=== PATIENT | male | born 1985 | race Caucasian/White ===

== ENCOUNTER 2018-02-14 21:45 | Emergency (ER) | payer OTHER ==
[2018-02-14] MEDS ORDERED: KETOROLAC 30 MG/ML INJ ONE (22:02)
[2018-02-14 22:10] LABS: Absolute Lymphocytes (CBC) 3.2 K/uL (0.7-4.9); Absolute Monocytes 0.7 K/uL (0.1-1.3); Absolute Neutrophil 4.1 K/uL (1.8-8.0); Basophils % 0.8 % (0-1.3); Eosinophils % 2.8 % (0-4.4); Hematocrit 39.7 % (39.6-49.0); Lymphocytes % 38.7 % (15.3-44.8); MCH 31.9 pg (27.0-35.0); MCV 92.6 fL (80-100); MPV 8.7 fL (7.6-11.3); Monocytes % 8.7 % (3.3-12.3); RBC Red Blood Cell Count 4.29 M/uL (4.33-5.43)
--- NOTE | 2018-02-15 00:09 | EDPHYS ---
Physician Documentation [facility] Name: Delio Diaz Age: 32 yrs Sex: Male : 1985 Arrival Date: 02/14/2018 Time: 21:48 Bed 23 Private MD: ED Physician Jaron Haque HPI: 02/14 23:03 This 32 yrs old Male presents to ER via EMS with complaints of Abdominal Pain.gs 23:03 The patient complains of pain in the right mid back and right low back. The pain gs radiates to the right lower quadrant. Onset: The symptoms/episode began/occurred acutely, just prior to arrival. Modifying factors: The symptoms are alleviated by nothing. the symptoms are aggravated by nothing. Associated signs and symptoms: Pertinent positives: nausea. Severity of pain: At its worst the pain was severe in the emergency department the pain is unchanged. The patient has experienced similar episodes in the past, a few times. The patient has not recently seen a physician. Historical: - Allergies: 21:51 No Known Allergies; lp1 - Home Meds: 21:51 None [Active]; lp1 - PMHx: 21:51 Kidney stones; lp1 - PSHx: 21:51 None; lp1 - Immunization history:: Adult Immunizations up to date. - Social history:: Smoking status: Patient uses tobacco products, smokes one pack cigarettes per day. - Ebola Screening: : No symptoms or risks identified at this time. ROS: 23:03 Constitutional: Negative for fever. gs 23:03 All other systems are negative. Exam: 23:03 Head/Face: Normocephalic, atraumatic. Eyes: Pupils equal round and reactive to light, gs extra-ocular motions intact. Lids and lashes normal. Conjunctiva and sclera are non-icteric and not injected. Cornea within normal limits. Periorbital areas with no swelling, redness, or edema. ENT: Nares patent. No nasal discharge, no septal abnormalities noted. Tympanic membranes are normal and external auditory canals are clear. Oropharynx with no redness, swelling, or masses, exudates, or evidence of obstruction, uvula midline. Mucous membranes moist. Neck: Trachea midline, no thyromegaly or masses palpated, and no cervical lymphadenopathy. Supple, full range of motion without nuchal rigidity, or vertebral point tenderness. No Meningismus. Chest/axilla: Normal chest wall appearance and motion. Nontender with no deformity. No lesions are appreciated. Cardiovascular: Regular rate and rhythm with a normal S1 and S2. No gallops, murmurs, or rubs. Normal PMI, no JVD. No pulse deficits. Respiratory: Lungs have equal breath sounds bilaterally, clear to auscultation and percussion. No rales, rhonchi or wheezes noted. No increased work of breathing, no retractions or nasal flaring. Abdomen/GI: Soft, non-tender, with normal bowel sounds. No distension or tympany. No guarding or rebound. No evidence of tenderness throughout. Male : Normal genitalia with no discharge or lesions. Skin: Warm, dry with normal turgor. Normal color with no rashes, no lesions, and no evidence of cellulitis. MS/ Extremity: Pulses equal, no cyanosis. Neurovascular intact. Full, normal range of motion. Neuro: Awake and alert, GCS 15, oriented to person, place, time, and situation. Cranial nerves II-XII grossly intact. Motor strength 5/5 in all extremities. Sensory grossly intact. Cerebellar exam normal. Normal gait. 23:03 Constitutional: The patient appears alert, awake, uncomfortable. 23:03 Back: CVA tenderness, that is mild, is noted on the right. Vital Signs: 21:50 Weight 81.65 kg; Height 6 ft. 0 in. (182.88 cm); Pain 10/10; lp1 21:57 BP 123 / 85; Pulse 81; Temp 97.7(O); Pulse Ox 99% ; rv 23:27 BP 128 / 89; Pulse 70; Pulse Ox 100% on R/A; rv 02/15 00:39 BP 139 / 88; Pulse 72; Pulse Ox 99% on R/A; rv 02/14 21:50 Body Mass Index 24.41 (81.65 kg, 182.88 cm) lp1 MDM: 02/14 21:49 Patient medically screened. 23:03 Differential diagnosis: nephrolithiasis, pyelonephritis, UTI. Data reviewed: vital gs signs, nurses notes. Response to treatment: the patient's symptoms have markedly improved after treatment. 02/15 00:07 Response to treatment: and as a result, I will discharge patient. 02/14 21:50 Order name: Basic Metabolic Panel; Complete Time: 00:09 02/14 21:50 Order name: CBC with Diff; Complete Time: 00:09 02/14 21:50 Order name: CT Stone Protocol 02/14 21:50 Order name: IV Saline Lock; Complete Time: 21:56 02/14 21:50 Order name: Labs collected and sent; Complete Time: 21:56 Administered Medications: 02/14 22:00 Drug: TORadol 15 mg Route: IVP; Site: right antecubital; rv 02/15 00:21 Follow up: Response: No adverse reaction; Pain is decreased rv 00:21 Drug: Potassium Effervescent Tablet 50 mEq Route: PO; rv 00:21 Follow up: Response: No adverse reaction; Medication administered at discharge. rv 01:00 Drug: NS 0.9% 1000 ml Route: IV; Rate: 1 bolus; Site: right antecubital; rv 01:23 Follow up: Response: No adverse reaction; IV Status: Completed infusion rv 01:00 Drug: Zofran 4 mg Route: IVP; Site: right antecubital; rv 01:24 Follow up: Response: No adverse reaction rv Disposition: 02/15/18 00:08 Discharged to Home. Impression: Hydronephrosis with renal and ureteral calculous obstruction. - Condition is Stable. - Discharge Instructions: Kidney Stones, Hydronephrosis. - Prescriptions for Naprosyn 500 mg Oral Tablet - take 1 tablet by ORAL route 2 times per day As needed take with food; 30 tablet. - Medication Reconciliation Form, Thank You Letter, Antibiotic Education, Prescription Opioid Use form. - Follow up: Susan Sullivan MD; When: 2 - 3 days; Reason: Re-evaluation by your physician. Signatures: Dispatcher [employer] EDMS Mala Victoria RN RN lp1 Jaron Haque MD MD Amadou Orellana RN RN rv Corrections: (The following items were deleted from the chart) 02/14 23:05 23:03 The patient has not experienced similar symptoms in the past, [facility] 02/15 01:38 00:08 02/15/2018 00:08 Discharged to Home. Impression: Hydronephrosis with renal and rv ureteral calculous obstruction. Condition is Stable. Forms are Medication Reconciliation Form, Thank You Letter, Antibiotic Education, Prescription Opioid Use. Follow up: Susan Sullivan; When: 2 - 3 days; Reason: Re-evaluation by your physician. gs
--- NOTE | 2018-02-15 00:09 | ER ---
Nurse's Notes [facility] Name: Delio Diaz Age: 32 yrs Sex: Male : 1985 Arrival Date: 02/14/2018 Time: 21:48 Bed 23 Private MD: Diagnosis: Hydronephrosis with renal and ureteral calculous obstruction Presentation: 02/14 21:48 Presenting complaint: EMS states: EMS responded to patient on the ground in parking lp1 lot, rolling around in pain; Lower right pelvic pain that began suddenly 1 hour ago, states has not been able to void for about 2 hours; Hx of kidney stones. Transition of care: patient was not received from another setting of care. Onset of symptoms was February 14, 2018 at 21:00. Risk Assessment: Do you want to hurt yourself or someone else? Patient reports no desire to harm self or others. Initial Sepsis Screen: Does the patient meet any 2 criteria? No. Patient's initial sepsis screen is negative. Does the patient have a suspected source of infection? No. Patient's initial sepsis screen is negative. Care prior to arrival: None. 21:48 Method Of Arrival: EMS: [facility] lp1 21:48 Acuity: TUNG 3 lp1 Historical: - Allergies: 21:51 No Known Allergies; lp1 - Home Meds: 21:51 None [Active]; lp1 - PMHx: 21:51 Kidney stones; lp1 - PSHx: 21:51 None; lp1 - Immunization history:: Adult Immunizations up to date. - Social history:: Smoking status: Patient uses tobacco products, smokes one pack cigarettes per day. - Ebola Screening: : No symptoms or risks identified at this time. Screenin:51 Abuse screen: Denies threats or abuse. Denies injuries from another. Nutritional lp1 screening: No deficits noted. Tuberculosis screening: No symptoms or risk factors identified. Fall Risk None identified. Assessment: 22:00 General: Appears in no apparent distress. uncomfortable, Behavior is agitated. Pain: rv Complains of pain in abdomen. Neuro: Level of Consciousness is awake, alert, obeys commands, Oriented to person, place, time, situation. Cardiovascular: Heart tones S1 S2 present. Respiratory: Airway is patent. GI: Bowel sounds present X 4 quads. Abd is soft Abdomen is tender to palpation. : No signs and/or symptoms were reported regarding the genitourinary system. EENT: No signs and/or symptoms were reported regarding the EENT system. Derm: Skin is intact. 02/15 01:14 Reassessment: Patient appears in no apparent distress at this time. Patient and/or rv family updated on plan of care and expected duration. Pain level reassessed. Patient is alert, oriented x 3, equal unlabored respirations, skin warm/dry/pink. Vital Signs: 02/14 21:50 Weight 81.65 kg; Height 6 ft. 0 in. (182.88 cm); Pain 10/10; lp1 21:57 BP 123 / 85; Pulse 81; Temp 97.7(O); Pulse Ox 99% ; rv 23:27 BP 128 / 89; Pulse 70; Pulse Ox 100% on R/A; rv 02/15 00:39 BP 139 / 88; Pulse 72; Pulse Ox 99% on R/A; rv 02/14 21:50 Body Mass Index 24.41 (81.65 kg, 182.88 cm) lp1 ED Course: 02/14 21:48 Patient arrived in ED. lp1 21:49 Jaron Haque MD is Attending Physician. gs 21:50 Triage completed. lp1 21:50 Arm band placed on right wrist. lp1 21:50 Patient has correct armband on for positive identification. Placed in gown. Bed in low rv position. Call light in reach. Side rails up X2. Pulse ox on. NIBP on. 22:00 Inserted saline lock: 20 gauge in right antecubital area, using aseptic technique. rv 22:29 CT Stone Protocol In Process Unspecified. EDMS 02/15 00:08 Susan Sullivan MD is Referral Physician. gs 01:13 No provider procedures requiring assistance completed. IV discontinued, bleeding rv controlled, No redness/swelling at site. Pressure dressing applied. Administered Medications: 02/14 22:00 Drug: TORadol 15 mg Route: IVP; Site: right antecubital; rv 02/15 00:21 Follow up: Response: No adverse reaction; Pain is decreased rv 00:21 Drug: Potassium Effervescent Tablet 50 mEq Route: PO; rv 00:21 Follow up: Response: No adverse reaction; Medication administered at discharge. rv 01:00 Drug: NS 0.9% 1000 ml Route: IV; Rate: 1 bolus; Site: right antecubital; rv 01:23 Follow up: Response: No adverse reaction; IV Status: Completed infusion rv 01:00 Drug: Zofran 4 mg Route: IVP; Site: right antecubital; rv 01:24 Follow up: Response: No adverse reaction rv Outcome: 00:08 Discharge ordered by . zhao 01:13 Discharged to home rv 01:13 Condition: improved 01:38 Patient left the ED. rv Signatures: Dispatcher [employer] EDMS Mala Victoria RN RN lp1 Jaron Haque MD MD gs Vicente, Ronaldo, RN RN rv Corrections: (The following items were deleted from the chart) 02/14 23: 22:45 General: Appears in no apparent distress. uncomfortable, Behavior is agitated, rv rv : 22:45 Pain: Complains of pain in abdomen rv rv : 22:45 Neuro: Level of Consciousness is awake, alert, obeys commands, Oriented to rv person, place, time, situation, rv : 22:45 Cardiovascular: Heart tones S1 S2 present rv rv 23: 22:45 Respiratory: Airway is patent rv rv 23: 22:45 GI: Bowel sounds present X 4 quads. Abd is soft Abdomen is tender to palpation rv rv 23: 22:45 : No signs and/or symptoms were reported regarding the genitourinary system. rv rv : 22:45 EENT: No signs and/or symptoms were reported regarding the EENT system. rv rv : 22:45 Derm: Skin is intact, rv rv
[2018-02-15] MEDS ORDERED: POTASSIUM 25 MEQ EFFERV TAB ONE (00:17)
[2018-02-15] MEDS ORDERED: ONDANSETRON 4 MG (ODT) TAB ONE (00:19)
[2018-02-15] MEDS ORDERED: ONDANSETRON 4 MG/2 ML VIAL ONE (00:36)
[2018-02-15] MEDS ORDERED: NA CHLORIDE 0.9% 1,000 ML ONE (00:36)
--- NOTE | 2018-02-15 09:26 | RAD REPORT ---
EXAM DESCRIPTION: CT - Stone Protocol - 02/15/2018 5:57 am CLINICAL HISTORY: Abdominal pain, right flank pain A preliminary written report was provided at the time of the study, and the report was reviewed prio r to final dictation. COMPARISON: None. TECHNIQUE: Axial 3 mm thick images were obtained without oral or IV contrast. The [id number] span s the entirety of the system including uppermost abdomen and lung bases. All CT scans are performed using dose optimization technique as appropriate and may include automated exposure control or mA/KV adjustment according to patient size. FINDINGS: Mild to moderate right-sided hydronephrosis secondary to a 2 mm calcification in the dista l right ureter at the UVJ. No left-sided hydronephrosis. No additional obstructing or nonobstructing calculi. There is questionable mineralization of renal pyramids. No suspicious renal masses. Isodense masses and pyelonephritis are not excluded on a stone protocol CT scan. No urinary bladder suspiciou s finding. Imaged portions of the liver, spleen and pancreas show no suspicious findings on non-contrast imaging . No gallbladder or biliary tree abnormality identified. No significant adrenal finding. No acute bowel finding. There is a large amount of stool throughout the colon including dilatation of the rectum. No acute colon process suspected. The appendix is normal. No hernia, mass or bulky lymphadenopathy noted. No free air, free fluid or inflammatory stranding. No significant bony abnormality. IMPRESSION: Mild to moderate right-sided hydronephrosis secondary to a 2 mm distal ureteral calculus near the UVJ. Isodense masses and pyelonephritis are not excluded on stone protocol technique.
== END 2018-02-15 01:38 | disposition home or self-care (01) ==
LOC: ER 21:45
DX: N13.2 Hydronephrosis with renal and ureteral calculous obstruction (principal); F17.210 Nicotine dependence, cigarettes, uncomplicated
CPT/HCPCS: 36415; 74176; 76377; 80048; 85025; 96374; 96375; 99284; J2405; J7030

== ENCOUNTER 2019-04-15 15:48 | Emergency (ER) | payer OTHER ==
[2019-04-15] MEDS ORDERED: dexAMETHasone 10 MG/ML VIAL ONE (16:55)
[2019-04-15] MEDS ORDERED: KETOROLAC 30 MG/ML INJ ONE (16:55)
--- NOTE | 2019-04-15 16:58 | RAD REPORT ---
EXAM DESCRIPTION: CT - Spine Lumbar Wo Con - 04/15/2019 4:44 pm CLINICAL HISTORY: Back pain, history of kidney stones, radiculopathy COMPARISON: None. TECHNIQUE: Thin section axial imaging of the lumbar spine was performed. Sagittal and coronal recon struction images were generated and reviewed. All CT scans are performed using dose optimization technique as appropriate and may include automated exposure control or mA/KV adjustment according to patient size. FINDINGS: Lumbar bodies are normal in height and alignment. No fracture or other acute vertebral bod y finding identifiable. No paraspinal mass seen. Central canal detail is inherently limited. There is loss in disc height at L4-5 with a small focal m idline herniation evident. This flattens the thecal sac in the midline. Midline canal diameter is sti ll 16 mm. No significant foraminal encroachment. L5-S1 disc bulge changes are present without herniation. There is no central spinal stenosis. Mild le ft foraminal disc bulge is present without stenosis. Remaining disc levels are unremarkable. L5 pars defect on the left. No subluxation abnormality. IMPRESSION: No fracture or acute vertebral body finding. Small midline disc herniation L4-5. No resulting central spinal stenosis. L5-S1 disc bulge not causing canal or significant foramen stenosis. Left-side L5 pars defect. No L5 subluxation.
--- NOTE | 2019-04-15 17:31 | ER ---
Nurse's Notes [facility] Name: Delio Diaz Age: 33 yrs Sex: Male : 1985 Arrival Date: 04/15/2019 Time: 15:51 Bed 16 Private MD: Diagnosis: Low back pain;L4-5 disc herniation without central spinal stenosis Presentation: 04/15 16:09 Presenting complaint: Patient states: Low back pain x 2 weeks that has been getting ss worse over time. Transition of care: patient was not received from another setting of care. Onset of symptoms was April 01, 2019. Risk Assessment: Do you want to hurt yourself or someone else? Patient reports no desire to harm self or others. Initial Sepsis Screen: Does the patient meet any 2 criteria? No. Patient's initial sepsis screen is negative. Does the patient have a suspected source of infection? No. Patient's initial sepsis screen is negative. Care prior to arrival: None. 16:09 Method Of Arrival: Ambulatory ss 16:09 Acuity: TUNG 3 ss Historical: - Allergies: 16:10 No Known Allergies; ss - Home Meds: 16:10 None [Active]; ss - PMHx: 16:10 Kidney stones; ss - PSHx: 16:10 None; ss - Immunization history:: Adult Immunizations up to date. - Social history:: Smoking status: Patient/guardian denies using tobacco. - Ebola Screening: : Patient denies exposure to infectious person Patient denies travel to an Ebola-affected area in the 21 days before illness onset. Screenin:50 Abuse screen: Denies threats or abuse. Denies injuries from another. Nutritional jl7 screening: No deficits noted. Tuberculosis screening: No symptoms or risk factors identified. Fall Risk IV access (20 points). Total Bowers Fall Scale indicates No Risk (0-24 pts). Assessment: 16:50 General: Appears in no apparent distress. uncomfortable, Behavior is cooperative, jl7 appropriate for age, anxious. Pain: Complains of pain in lumbar area Pain currently is 10 out of 10 on a pain scale. Pain began 2-3 days ago. Is continuous. Neuro: Level of Consciousness is awake, alert, obeys commands, Oriented to person, place, time, situation, Moves all extremities. Full function Speech is normal. Cardiovascular: Patient's skin is warm and dry. Respiratory: Airway is patent Respiratory effort is even, unlabored, Respiratory pattern is regular, symmetrical. Musculoskeletal: Reports pain in back. 18:00 Reassessment: Patient appears in no apparent distress at this time. Patient and/or jl7 family updated on plan of care and expected duration. Pain level reassessed. Patient is alert, oriented x 3, equal unlabored respirations, skin warm/dry/pink. Patient states symptoms have not improved. Vital Signs: 16:08 BP 136 / 92; Pulse 86; Resp 16; Temp 97.9(TE); Pulse Ox 100% on R/A; Weight 95.25 kg; ss Height 6 ft. 0 in. (182.88 cm); 18:32 BP 124 / 71; Pulse 68; Resp 16 S; Pulse Ox 100% on R/A; jl7 16:08 Body Mass Index 28.48 (95.25 kg, 182.88 cm) ED Course: 15:51 Patient arrived in ED. mr 15:59 Jc Pretty PA is PHCP. jr 15:59 Hank Iglesias MD is Attending Physician. jr8 16:08 Arm band placed on right wrist. ss 16:10 Triage completed. ss 16:37 Shayla Mccall, ASPEN is Primary Nurse. jl7 16:43 CT completed. Patient tolerated procedure well. Patient moved to CT. Patient moved back nj from CT. 16:50 Patient has correct armband on for positive identification. Bed in low position. Call jl7 light in reach. Side rails up X 1. Pulse ox on. NIBP on. Warm blanket given. 16:50 Inserted saline lock: 22 gauge in left antecubital area, using aseptic technique. jl7 16:54 CT Lumbar Spine Wo Con In Process Unspecified. EDMS 18:32 No provider procedures requiring assistance completed. IV discontinued, intact, jl7 bleeding controlled, No redness/swelling at site. Pressure dressing applied. Administered Medications: 17:00 Drug: Decadron - Dexamethasone 10 mg Route: IVP; Site: left antecubital; jl7 17:30 Follow up: Response: No adverse reaction; Pain is unchanged, physician notified jl7 17:02 Drug: TORadol - Ketorolac 15 mg Route: IVP; Site: left antecubital; jl7 17:30 Follow up: Response: No adverse reaction; Pain is unchanged, physician notified aaron 17:05 Drug: Robaxin 1 grams Route: IVPB; Infused Over: 1 hrs; Site: left antecubital; jl7 18:05 Follow up: Response: No adverse reaction; Pain is unchanged, physician notified; IV jl7 Status: Completed infusion Outcome: 17:30 Discharge ordered by . tawanda 18:32 Discharged to home ambulatory. jl7 18:32 Condition: stable 18:32 Discharge instructions given to patient, Instructed on discharge instructions, follow up and referral plans. medication usage, Demonstrated understanding of instructions, follow-up care, medications, Prescriptions given X 3. 18:33 Patient left the ED. jl7 Signatures: Dispatcher [employer] EDIL Latonia Mosquera Shelby, ASPEN RN Jc Arriola PA PA jr8 Jordan, Nathan nj Leal, Jahala, RN RN jl7 Corrections: (The following items were deleted from the chart) 16:24 16:09 Acuity: TUNG 4 ss aurelia
--- NOTE | 2019-04-15 17:31 | EDPHYS ---
Physician Documentation [facility] Name: Delio Diaz Age: 33 yrs Sex: Male : 1985 Arrival Date: 04/15/2019 Time: 15:51 Bed 16 Private MD: ED Physician Hank Iglesias HPI: 04/15 16:05 This 33 yrs old Male presents to ER via Unassigned with complaints of Back jr8 Pain. 16:05 The patient presents with pain that is acute, with no known mechanism of injury. The jr8 symptoms are located in the low back. Onset: The symptoms/episode began/occurred 2 week(s) ago. Associated signs and symptoms: Pertinent negatives: abdominal pain, chest pain, constipation, dysuria, fever, headache. Severity of symptoms: At their worst the symptoms were mild, in the emergency department the symptoms are unchanged. Pt states two weeks ago he bent over and felt a stretching pain in his lower back. Since then has had pain with walking, ROM of back, and any pressure on the area. . Historical: - Allergies: 16:10 No Known Allergies; ss - Home Meds: 16:10 None [Active]; ss - PMHx: 16:10 Kidney stones; ss - PSHx: 16:10 None; ss - Immunization history:: Adult Immunizations up to date. - Social history:: Smoking status: Patient/guardian denies using tobacco. - Ebola Screening: : Patient denies exposure to infectious person Patient denies travel to an Ebola-affected area in the 21 days before illness onset. ROS: 16:05 Constitutional: Negative for fever, chills, and weight loss, Eyes: Negative for injury, jr8 pain, redness, and discharge, ENT: Negative for injury, pain, and discharge, Cardiovascular: Negative for chest pain, palpitations, and edema, Respiratory: Negative for shortness of breath, cough, wheezing, and pleuritic chest pain, Abdomen/GI: Negative for abdominal pain, nausea, vomiting, diarrhea, and constipation. 16:05 Constitutional: Negative for chills, fatigue, fever, malaise, poor PO intake, weight loss. 16:05 Abdomen/GI: Negative for nausea and vomiting. 16:05 Back: Positive for pain at rest, pain with movement, Negative for injury or acute deformity. 16:05 : Negative for urinary symptoms, urinary frequency, hematuria, flank pain, burning with urination, penile discharge. 16:05 Skin: Negative for ecchymosis, hematoma. 16:05 Neuro: Negative for numbness, tingling. Exam: 16:08 Constitutional: This is a well developed, well nourished patient who is awake, alert, jr8 and in no acute distress. Head/Face: Normocephalic, atraumatic. Eyes: Pupils equal round and reactive to light, extra-ocular motions intact. Lids and lashes normal. Conjunctiva and sclera are non-icteric and not injected. Cornea within normal limits. Periorbital areas with no swelling, redness, or edema. ENT: Nares patent. No nasal discharge, no septal abnormalities noted. Tympanic membranes are normal and external auditory canals are clear. Oropharynx with no redness, swelling, or masses, exudates, or evidence of obstruction, uvula midline. Mucous membranes moist. Neck: Trachea midline, no thyromegaly or masses palpated, and no cervical lymphadenopathy. Supple, full range of motion without nuchal rigidity, or vertebral point tenderness. No Meningismus. Chest/axilla: Normal chest wall appearance and motion. Nontender with no deformity. No lesions are appreciated. Cardiovascular: Regular rate and rhythm with a normal S1 and S2. No gallops, murmurs, or rubs. Normal PMI, no JVD. No pulse deficits. Respiratory: Lungs have equal breath sounds bilaterally, clear to auscultation and percussion. No rales, rhonchi or wheezes noted. No increased work of breathing, no retractions or nasal flaring. Abdomen/GI: Soft, non-tender, with normal bowel sounds. No distension or tympany. No guarding or rebound. No evidence of tenderness throughout. 16:08 Back: pain, that is moderate, ROM is normal, normal spinal alignment noted, CVA tenderness, is absent. 17:52 Neuro: Awake and alert, GCS 15, oriented to person, place, time, and situation. jr8 Cranial nerves II-XII grossly intact. Motor strength 5/5 in all extremities. Sensory grossly intact. Cerebellar exam normal. Normal gait. Vital Signs: 16:08 BP 136 / 92; Pulse 86; Resp 16; Temp 97.9(TE); Pulse Ox 100% on R/A; Weight 95.25 kg; ss Height 6 ft. 0 in. (182.88 cm); 18:32 BP 124 / 71; Pulse 68; Resp 16 S; Pulse Ox 100% on R/A; jl7 16:08 Body Mass Index 28.48 (95.25 kg, 182.88 cm) ss MDM: 15:59 Patient medically screened. jr8 17:26 Data reviewed: vital signs, nurses notes, radiologic studies, and as a result, I will jr8 discharge patient. Data interpreted: Pulse oximetry: on room air is 100 %. Interpretation: normal. Counseling: I had a detailed discussion with the patient and/or guardian regarding: the historical points, exam findings, and any diagnostic results supporting the discharge/admit diagnosis, radiology results. Response to treatment: the patient's symptoms have mildly improved after treatment. ED course: At length discussion regarding diagnosis, pt given return precautions. . 04/15 16:24 Order name: CT Lumbar Spine Wo Con; Complete Time: 17:18 jr8 04/15 16:24 Order name: SL; Complete Time: 17:08 jr8 Administered Medications: 17:00 Drug: Decadron - Dexamethasone 10 mg Route: IVP; Site: left antecubital; jl7 17:30 Follow up: Response: No adverse reaction; Pain is unchanged, physician notified jl7 17:02 Drug: TORadol - Ketorolac 15 mg Route: IVP; Site: left antecubital; jl7 17:30 Follow up: Response: No adverse reaction; Pain is unchanged, physician notified jl7 17:05 Drug: Robaxin 1 grams Route: IVPB; Infused Over: 1 hrs; Site: left antecubital; jl7 18:05 Follow up: Response: No adverse reaction; Pain is unchanged, physician notified; IV jl7 Status: Completed infusion Disposition: 18:34 Co-signature as Attending Physician, Hank Iglesias MD. rn Disposition: 04/15/19 17:30 Discharged to Home. 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 - Condition is Stable. - Discharge Instructions: Back Pain, Adult, Musculoskeletal Pain, Back Exercises. - Prescriptions for Ibuprofen 800 mg Oral Tablet - take 1 tablet by ORAL route every 12 hours As needed take with food; 20 tablet. Skelaxin 800 mg Oral Tablet - take 1 tablet by ORAL route every 8 hours As needed; 30 tablet. Medrol (Baltazar) 4 mg Oral Tablets, Dose Pack - take 1 tablet by ORAL route as directed - follow package instructions; 1 packet. - Work release form, Medication Reconciliation Form, Thank You Letter form. - Follow up: Private Physician; When: 5 - 6 days; Reason: Recheck today's complaints, Re-evaluation by your physician. - Problem is new. - Symptoms have improved. Signatures: Dispatcher [employer] EDMS Hank Iglesias MD MD rn Smirch, Shelby, RN RN Jc Arriola PA PA jr8 Shayla Mccall RN RN jl7 Corrections: (The following items were deleted from the chart) 18:33 17:30 04/15/2019 17:30 Discharged to Home. Impression: Low back pain; L4-5 disc jl7 herniation without central spinal stenosis. Condition is Stable. Forms are Medication Reconciliation Form, Thank You Letter, Antibiotic Education, Prescription Opioid Use. Follow up: Private Physician; When: 5 - 6 days; Reason: Recheck today's complaints, Re-evaluation by your physician. Problem is new. Symptoms have improved. jr8
[2019-04-15] MEDS ORDERED: METHOCARBAMOL 1,000 MG in NA CHLORIDE 0.9% 100 ML IV ONE (18:00)
[2019-04-15 19:00] VITALS: TEMP 97.9; O2SAT 100
[2019-04-15 19:01] VITALS: BP 124/71
== END 2019-04-15 18:33 | disposition home or self-care (01) ==
LOC: ER 15:48
DX: M51.26 Other intervertebral disc displacement, lumbar region (principal)
CPT/HCPCS: 96365; 72131; 96375; 99284; J1100; J2800

== ENCOUNTER 2020-11-27 18:49 | Emergency (ER) | payer OTHER ==
--- NOTE | 2020-11-27 19:51 | ER ---
Nurse's Notes [facility] Name: Delio Diaz Age: 35 yrs Sex: Male : 1985 Arrival Date: 11/27/2020 Time: 19:00 Bed 28 Private MD: Diagnosis: Rash and other nonspecific skin eruption;Pityriasis rosea Presentation: 11/27 19:03 Chief complaint: Patient states: i have this rash all over my body. it started tw2 yesterday. my chest, my arms, and even on my feet and in my groin area. i tried calamine lotion and it is itching out of control and i just cant handle it. Coronavirus screen: At this time, the client does not indicate any symptoms associated with coronavirus-19. Ebola Screen: Patient denies travel to an Ebola-affected area in the 21 days before illness onset. Initial Sepsis Screen: Does the patient meet any 2 criteria? No. Patient's initial sepsis screen is negative. Does the patient have a suspected source of infection? No. Patient's initial sepsis screen is negative. Risk Assessment: Do you want to hurt yourself or someone else? Patient reports no desire to harm self or others. Onset of symptoms was November 27, 2020. 19:03 Method Of Arrival: Ambulatory tw2 19:03 Acuity: TUNG 4 tw2 Triage Assessment: 19:05 General: Appears in no apparent distress. Behavior is calm, cooperative, appropriate tw2 for age. Derm: red, raised bumps all over his body. Historical: - Allergies: 19:05 No Known Allergies; tw2 - Home Meds: 19:05 None [Active]; tw2 - PMHx: 19:05 Kidney stones; tw2 - PSHx: 19:05 None; tw2 - Immunization history:: Adult Immunizations. - Social history:: Smoking status: Patient reports the use of cigarette tobacco products, smokes one-half pack cigarettes per day, Patient uses alcohol, street drugs, marijuana, daily. Screenin:19 Abuse screen: Denies threats or abuse. Denies injuries from another. Nutritional zb screening: No deficits noted. Tuberculosis screening: No symptoms or risk factors identified. Fall Risk None identified. Assessment: 19:14 General: Appears uncomfortable, Behavior is calm. Pain: Complains of pain in chest, zb pelvis, right arm and left arm. Neuro: Level of Consciousness is awake, alert, obeys commands, Oriented to person, place, time, situation. Cardiovascular: Patient's skin is warm and dry. Respiratory: Airway is patent Trachea midline Respiratory effort is even, unlabored. GI: Abdomen is flat. Derm: Skin is intact, Skin is dry, Skin is normal, Rash noted that is papular, red, raised, urticaria, on chest, abdomen, pelvis, right arm and left arm. Musculoskeletal: Circulation, motion, and sensation intact. Range of motion: intact in all extremities. 20:06 Reassessment: pt upset states he thinks he has scabies and wants permethrin to treat bb it. Dr Abad notified and at bedside for explanation that it is not scabies. Pt became angry and left without signing discharge paperwork. Vital Signs: 19:03 BP 151 / 101; Pulse 113; Resp 17; Temp 98.4(TE); Pulse Ox 98% on R/A; Weight 86.18 kg tw2 (R); Height 6 ft. 0 in. (182.88 cm); 19:21 BP 142 / 99; Pulse 91; Resp 16; Pulse Ox 99% on R/A; zb 19:03 Body Mass Index 25.77 (86.18 kg, 182.88 cm) tw2 ED Course: 19:00 Patient arrived in ED. ds1 19:05 Triage completed. tw2 19:05 Arm band placed on. tw2 19:08 Grace Maddox RN is Primary Nurse. zb 19:14 Ammon Abad MD is Attending Physician. tw4 19:19 Patient has correct armband on for positive identification. Bed in low position. Call zb light in reach. Pulse ox on. NIBP on. 20:00 No provider procedures requiring assistance completed. Patient did not have IV access zb during this emergency room visit. Administered Medications: No medications were administered Outcome: 19:50 Discharge ordered by . tw4 20:07 Patient left the ED. bb 20:07 Eloped from patient exam room. zb 20:07 Condition: stable 20:07 Discharge instructions given to unable to give Signatures: Bonnie Parson ds1 Lela Miramontes, ASPEN RN bb Leigh Olivares RN RN tw2 Ammon Abad MD MD tw4 Grace Maddox, RN RN zb
[2020-11-27 20:16] VITALS: TEMP 98.4
[2020-11-27 20:17] VITALS: BP 142/99; O2SAT 99
--- NOTE | 2020-11-28 20:08 | EDPHYS ---
Physician Documentation [facility] Name: Delio Diaz Age: 35 yrs Sex: Male : 1985 Arrival Date: 11/27/2020 Time: 19:00 Bed 28 Private MD: ED Physician Ammon Abad HPI: 11/28 00:00 This 35 yrs old Male presents to ER via Ambulatory with complaints of Rash. tw4 00:00 The patient's rash thought to be caused by an unknown cause. The rash is located on the tw4 body diffusely. Onset: The symptoms/episode began/occurred today. Associated signs and symptoms: Pertinent positives: None. Severity of symptoms: At their worst the symptoms were moderate in the emergency department the symptoms are unchanged. The patient has not experienced similar symptoms in the past. Historical: - Allergies: 11/27 19:05 No Known Allergies; tw2 - Home Meds: 19:05 None [Active]; tw2 - PMHx: 19:05 Kidney stones; tw2 - PSHx: 19:05 None; tw2 - Immunization history:: Adult Immunizations. - Social history:: Smoking status: Patient reports the use of cigarette tobacco products, smokes one-half pack cigarettes per day, Patient uses alcohol, street drugs, marijuana, daily. ROS: 11/28 00:00 Constitutional: Negative for fever, chills, and weight loss, Eyes: Negative for injury, tw4 pain, redness, and discharge, Cardiovascular: Negative for chest pain, palpitations, and edema, Respiratory: Negative for shortness of breath, cough, wheezing, and pleuritic chest pain, Abdomen/GI: Negative for abdominal pain, nausea, vomiting, diarrhea, and constipation, Back: Negative for injury and pain, MS/Extremity: Negative for injury and deformity. Skin: Positive for rash. Exam: 00:00 Constitutional: This is a well developed, well nourished patient who is awake, alert, tw4 and in no acute distress. Head/Face: Normocephalic, atraumatic. Neck: Trachea midline, no thyromegaly or masses palpated, and no cervical lymphadenopathy. Supple, full range of motion without nuchal rigidity, or vertebral point tenderness. No Meningismus. Chest/axilla: Normal chest wall appearance and motion. Nontender with no deformity. No lesions are appreciated. Cardiovascular: Regular rate and rhythm with a normal S1 and S2. No gallops, murmurs, or rubs. Normal PMI, no JVD. No pulse deficits. Respiratory: Lungs have equal breath sounds bilaterally, clear to auscultation and percussion. No rales, rhonchi or wheezes noted. No increased work of breathing, no retractions or nasal flaring. Abdomen/GI: Soft, non-tender, with normal bowel sounds. No distension or tympany. No guarding or rebound. No evidence of tenderness throughout. Back: No spinal tenderness. No costovertebral tenderness. Full range of motion. MS/ Extremity: Pulses equal, no cyanosis. Neurovascular intact. Full, normal range of motion. 00:00 Skin: rash can be described as papular. Vital Signs: 11/27 19:03 BP 151 / 101; Pulse 113; Resp 17; Temp 98.4(TE); Pulse Ox 98% on R/A; Weight 86.18 kg tw2 (R); Height 6 ft. 0 in. (182.88 cm); 19:21 BP 142 / 99; Pulse 91; Resp 16; Pulse Ox 99% on R/A; zb 19:03 Body Mass Index 25.77 (86.18 kg, 182.88 cm) tw2 MDM: 19:13 Patient medically screened. tw4 11/28 00:00 Data reviewed: vital signs, nurses notes. Data interpreted: Pulse oximetry: tw4 Interpretation: normal. Counseling: I had a detailed discussion with the patient and/or guardian regarding: the historical points, exam findings, and any diagnostic results supporting the discharge/admit diagnosis. Special discussion: I discussed with the patient/guardian in detail that at this point there is no indication for admission to the hospital. It is understood, however, that if the symptoms persist or worsen the patient needs to return immediately for re-evaluation. ED course: Pt wanted treatment for scabies although diagnosis suggestive of pityriasis rosea not a parasitic infection . Administered Medications: No medications were administered Disposition: 11/27/20 19:50 Discharged to Home. Impression: Rash and other nonspecific skin eruption, Pityriasis rosea. - Condition is Stable. - Discharge Instructions: Pityriasis Rosea, Rash. - Prescriptions for Lac- Hydrin Five - Apply to affected area 1 application by TOPICAL route once daily; 1 bottle. Hydrocortisone 0.5 % Topical Cream - apply 1 application by TOPICAL route every 12 hours As needed; 30 gram. - Medication Reconciliation Form, Thank You Letter, Antibiotic Education, Prescription Opioid Use form. - Follow up: Private Physician; When: Upon discharge from the Emergency Department; Reason: Recheck today's complaints, Continuance of care, Re-evaluation by your physician. - Problem is new. - Symptoms have improved. Signatures: Lela Miramontes RN RN bb Leigh Olivares RN RN tw2 Ammon Abad MD MD tw4 Corrections: (The following items were deleted from the chart) 11/27 20:07 19:50 11/27/2020 19:50 Discharged to Home. Impression: Rash and other nonspecific skin bb eruption; Pityriasis rosea. Condition is Stable. Forms are Medication Reconciliation Form, Thank You Letter, Antibiotic Education, Prescription Opioid Use. Follow up: Private Physician; When: Upon discharge from the Emergency Department; Reason: Recheck today's complaints, Continuance of care, Re-evaluation by your physician. Problem is new. Symptoms have improved. tw4
== END 2020-11-27 20:07 | disposition home or self-care (01) ==
LOC: ER 18:49
DX: L42 Pityriasis rosea (principal); F17.210 Nicotine dependence, cigarettes, uncomplicated
CPT/HCPCS: 99283

== ENCOUNTER 2020-11-30 16:55 | Emergency (ER) | payer OTHER ==
[2020-11-30] MEDS ORDERED: HYDROCODONE/APAP 7.5/325 MG TAB ONE (17:36)
--- NOTE | 2020-11-30 18:00 | RAD REPORT ---
EXAM DESCRIPTION: RAD - Forearm Right - 11/30/2020 5:34 pm CLINICAL HISTORY: Right arm pain status post fall FINDINGS: Transverse lucency is present within distal radius. This probably represents prominent tra becula. A nondisplaced fracture is considered less likely. 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
--- NOTE | 2020-11-30 18:02 | RAD REPORT ---
EXAM DESCRIPTION: RAD - Hand Right 3 View - 11/30/2020 5:34 pm CLINICAL HISTORY: Right hand pain status post injury FINDINGS: Transverse lucency is present within distal radius. This probably represents prominent trabecula. A n ondisplaced fracture is considered less likely. Clinical correlation is needed to see if patient has pain in this region to suggest this Old ununited fracture ulnar styloid process Old fracture fifth metacarpal. No dislocation. 

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
[2020-11-30 19:00] VITALS: TEMP 98.5
[2020-11-30 19:01] VITALS: BP 148/94; O2SAT 99
[2020-11-30] MEDS ORDERED: IBUPROFEN 400 MG TAB ONE (19:09)
== END 2020-11-30 18:54 | disposition home or self-care (01) ==
LOC: ER 16:55
PROC: 2W3CX1Z Immobilization of Right Lower Arm using Splint (ICD-10-PCS; principal; 2020-11-30)
DX: S52.501A Unspecified fracture of the lower end of right radius, initial encounter for closed fracture (principal); F17.210 Nicotine dependence, cigarettes, uncomplicated; Y04.0XXA Assault by unarmed brawl or fight, initial encounter
CPT/HCPCS: 99284

== ENCOUNTER 2021-06-08 01:07 | Emergency (ER) | payer OTHER ==
--- OUTSIDE RECORDS SUMMARY | 2021-06-08 01:10 | XMS REPORT | Continuity of Care Document ---
:1985 Author Organization [facility] t Address [address] [place] [address] Dr. Bui [address] [place] [id number] Care Team Providers Name Role Phone Gaby Attending Clinician Unavailable Gaby Admitting Clinician Unavailable Problems This patient has no known problems. Allergies, Adverse Reactions, Alerts This patient has no known allergies or adverse reactions. Medications This patient has no known medications. Procedures This patient has no known procedures. Encounters Start End Encounter Admission Attending Care Care Encounter Source Date/Time Date/Time Type Type Clinicians Facility Department ID 2021-06-01 Outpatient Gaby [facility] [id number] [place] 13:10:29 0421 [facility] Results This patient has no known results.
[2021-06-08] MEDS ORDERED: MORPHINE 4 MG/ML SYR ONE (01:32)
[2021-06-08] MEDS ORDERED: ONDANSETRON 4 MG/2 ML VIAL ONE (01:33)
[2021-06-08 02:06] LABS: Protime INR 0.91
[2021-06-08 02:09] LABS: Absolute Lymphocytes (CBC) 1.3 K/uL (0.7-4.9); Basophils % 0.5 % (0-1.3); Hematocrit 42.3 % (39.6-49.0); Lymphocytes % 10.5 % (15.3-44.8); MPV 8.4 fL (7.6-11.3); RBC Red Blood Cell Count 4.67 M/uL (4.33-5.43)
[2021-06-08 02:26] LABS: Barbiturates NEGATIVE (NEGATIVE); Benzodiazepines NEGATIVE (NEGATIVE); Cocaine NEGATIVE (NEGATIVE); METHAMPHETAM POSITIVE (NEGATIVE); Methadone NEGATIVE (NEGATIVE); Opiates NEGATIVE (NEGATIVE); Phencyclidine NEGATIVE (NEGATIVE); THC Cannibis POSITIVE (NEGATIVE)
[2021-06-08 02:30] LABS: ALT/SGPT 22 U/L (12-78); AST/SGOT 10 U/L (15-37); Albumin 3.7 g/dL (3.4-5.0); Alkaline Phosphatase 96 U/L (45-117); BUN Blood Urea Nitrogen 16 mg/dL (7-18); Bicarbonate 30 mmol/L (21-32); Bilirubin Direct < 0.1 mg/dL (0-0.2); Bilirubin Total 0.3 mg/dL (0.2-1.0); Glucose Level 100 mg/dL (74-106); Lipase 135 U/L (73-393); Magnesium 2.3 mg/dL (1.8-2.4); NT PRO-BNP 78 pg/mL (<125); Potassium 3.9 mmol/L (3.5-5.1); Protein, Total 7.7 g/dL (6.4-8.2); Sodium Level 144 mmol/L (136-145); Troponin (Emerg Dept Use Only) < 0.02 ng/mL (0.0-0.045)
[2021-06-08] MEDS ORDERED: NA CHLORIDE 0.9% 1,000 ML ONE (02:55)
[2021-06-08] MEDS ORDERED: LORazepam 2 MG/ML VIAL ONE ×2 (02:55→04:17)
[2021-06-08] MEDS ORDERED: KETOROLAC 30 MG/ML INJ ONE (04:51)
--- NOTE | 2021-06-08 05:52 | ER ---
Nurse's Notes [facility] Name: Delio Diaz Age: 35 yrs Sex: Male : 1985 Arrival Date: 06/08/2021 Time: 01:10 Bed 4 Private MD: Diagnosis: Chest pain, unspecified;Methamphetamine abuse Presentation: 06/08 01:19 Chief complaint: Patient states: he has been having chest pain for about 2 hours the bb pain does not radiate and is constant, pt denies nausea but feels a little SOB. Coronavirus screen: At this time, the client does not indicate any symptoms associated with coronavirus-19. Ebola Screen: No symptoms or risks identified at this time. Initial Sepsis Screen: Does the patient meet any 2 criteria? No. Patient's initial sepsis screen is negative. Does the patient have a suspected source of infection? No. Patient's initial sepsis screen is negative. Risk Assessment: Do you want to hurt yourself or someone else? Patient reports no desire to harm self or others. Onset of symptoms was June 08, 2021. 01:19 Method Of Arrival: Ambulatory bb 01:19 Acuity: TUNG 3 bb Historical: - Allergies: :21 No Known Allergies; bb - Home Meds: : None [Active]; bb - PMHx: :21 Kidney stones; bb - PSHx: : None; bb - Immunization history:: Adult Immunizations up to date, Client reports having NOT received the Covid vaccine. - Social history:: Smoking status: Patient reports the use of cigarette tobacco products, smokes one-half pack cigarettes per day, Patient uses street drugs, marijuana, Patient/guardian denies using alcohol. Screenin:25 Abuse screen: Denies threats or abuse. Denies injuries from another. Nutritional tw5 screening: No deficits noted. Tuberculosis screening: No symptoms or risk factors identified. Fall Risk None identified. Assessment: 01:25 General: Appears in no apparent distress. Behavior is cooperative, anxious. Pain: Pain tw5 does not radiate. Pain currently is 8 out of 10 on a pain scale. Quality of pain is described as pressure, " Feels like a bubble is stuck in my chest" Pain began 1 hour ago. Cardiovascular: Heart tones S1 S2 present. Cardiovascular: Rhythm is sinus tachycardia. Respiratory: Airway is patent Trachea midline Respiratory effort is even, unlabored. 01:25 General: Reports " I was sitting talking to my sister when I told her I was having tw5 chest pain. Kind of like a bubble is stuck, but worse". 03:00 Reassessment: Patient appears in no apparent distress at this time. Patient and/or tw5 family updated on plan of care and expected duration. Pain level reassessed. Pain: Pain currently is 5 out of 10 on a pain scale. 04:21 Reassessment: Patient states feeling better. Patient states symptoms have improved. tw5 04:58 Pain: Pain currently is 9 out of 10 on a pain scale. tw5 05:35 Reassessment: Patient states feeling better. Patient states symptoms have improved. tw5 General: Reports " When I breath it still hurts, but just laying here it is a 2/10". Vital Signs: 01:19 BP 144 / 102; Pulse 112; Resp 18 S; Temp 98.3(TE); Pulse Ox 100% on R/A; Weight 90.72 bb kg (R); Height 6 ft. 0 in. (182.88 cm) (R); Pain 8/10; 01:25 BP 144 / 102; Pulse 104; Resp 22; Pulse Ox 100% on R/A; Pain 8/10; tw5 01:59 BP 150 / 113; Pulse 116; Resp 20; Pulse Ox 100% on R/A; df1 02:59 Pain 5/10; tw5 03:00 BP 150 / 115; Pulse 111; Resp 22; Pulse Ox 99% on R/A; Pain 5/10; tw5 03:38 BP 152 / 112; Pulse 101; Resp 18; Pulse Ox 98% on R/A; df1 04:21 BP 153 / 117; Pulse 102; Resp 22; Pulse Ox 97% on R/A; tw5 04:58 Pulse 107; Resp 22; Pulse Ox 99% on R/A; Pain 9/10; tw5 05:34 BP 144 / 102; Pulse 102; Resp 22; Pulse Ox 97% on R/A; tw5 05:34 Pain 2/10; tw5 06:02 BP 144 / 102; Pulse 112; Resp 22; Pulse Ox 96% on R/A; tw5 01:19 Body Mass Index 27.12 (90.72 kg, 182.88 cm) ED Course: 01:10 Patient arrived in ED. wm 01:15 Roque Murcia MD is Attending Physician. 7 01:21 Triage completed. bb 01:21 Arm band placed on Patient placed in an exam room, on a stretcher, on telemetry monitor, bb on pulse oximetry. EKG completed in triage. Results shown to MD. 01:25 Amelia Marroquin is Primary Nurse. tw5 01:25 No apparent distress. Resting quietly. tw5 01:25 Patient has correct armband on for positive identification. Placed in gown. Bed in low tw5 position. Call light in reach. Side rails up X 1. court monitor on. Pulse ox on. NIBP on. Door closed. Noise minimized. Moved to private room. Warm blanket given. Verbal reassurance given. 01:25 EKG done, by jewelry technician. reviewed by Roque Murcia MD. tw5 01:25 Initial lab(s) drawn, by pr, sent to lab. Inserted saline lock: 18 gauge in right tw5 antecubital area, using aseptic technique. Blood collected. Patient maintains SpO2 saturation greater than 95% on room air. 01:29 Basic Metabolic Panel Sent. tw5 01:29 CBC with Automated Diff Sent. tw 01:48 TSH Sent. tw 01:48 CBC with Automated Diff Sent. tw 01:48 Basic Metabolic Panel Sent. tw 01:48 Basic Metabolic Panel Sent. tw5 01:49 Awaiting lab results. tw5 01:49 CBC with Diff Sent. tw5 01:49 Troponin (emerg Dept Use Only) Sent. tw 01:49 PT-INR Sent. tw 01:49 NT PRO-BNP Sent. tw5 01:49 Magnesium Sent. tw5 01:49 LFT's Sent. tw5 01:49 UDS Sent. tw5 01:49 Urine collected: clean catch specimen, bernarda colored. tw5 01:56 XRAY Chest (1 view) In Process Unspecified. EDMS 02:55 CPK Sent. tw5 03:02 CPK Sent. tw5 04:55 CT Chest For PE Angio In Process Unspecified. EDMS 04:58 Diet: Patient given water. tw5 04:58 Troponin (Emerg Dept Use Only) Sent. tw5 05:51 Miguel Ángel Gaona MD is Referral Physician. mh7 06:02 No provider procedures requiring assistance completed. IV discontinued, intact, tw5 bleeding controlled, No redness/swelling at site. Pressure dressing applied. Administered Medications: 01:48 Drug: morphine 4 mg Route: IVP; Site: right antecubital; tw5 02:59 Follow up: Pain 5/10 Adult; Response: No adverse reaction; Pain is decreased; RASS: tw5 Alert and Calm (0) 01:48 Drug: Zofran (Ondansetron) 4 mg Route: IVP; Site: right antecubital; tw5 02:59 Follow up: Response: No adverse reaction tw5 02:59 Drug: NS 0.9% 1000 ml Route: IV; Rate: 1000 ml; Site: right antecubital; tw5 03:02 Drug: Ativan (LORazepam) 1 mg Route: IVP; Site: right antecubital; tw5 04:20 Follow up: Response: No adverse reaction; Anxiety decreased tw5 04:20 Drug: Ativan (LORazepam) 1 mg Route: IVP; Site: right antecubital; tw5 04:53 Follow up: Response: No adverse reaction; Anxiety decreased tw5 04:57 Drug: Ketorolac 15 mg Route: IVP; Site: right antecubital; tw5 05:34 Follow up: Pain 2/10 Adult; Response: No adverse reaction; Pain is decreased tw5 Outcome: 05:52 Discharge ordered by . [facility] 06:02 Discharged to home ambulatory. tw5 06:02 Condition: good 06:02 Discharge instructions given to patient, Instructed on discharge instructions, follow up and referral plans. Demonstrated understanding of instructions. 06:03 Patient left the ED. tw Signatures: Dispatcher [employer] EDSC Lela Miramontes RN RN Roque Alfaro MD MD [address] Dawn dfAmelia Peraza tw5 Corrections: (The following items were deleted from the chart) 01:59 01:48 LIPASE+C.LAB.BRZ drawn and sent. EDMS 02:00 01:48 Thyroid Stimulating Hormone drawn and sent. tw5 EDMS
--- NOTE | 2021-06-08 05:53 | EDPHYS ---
Physician Documentation [facility] Name: Delio Diaz Age: 35 yrs Sex: Male : 1985 Arrival Date: 06/08/2021 Time: 01:10 Bed 4 Private MD: ED Physician Roque Murcia HPI: 06/08 01:31 This 35 yrs old Male presents to ER via Ambulatory with complaints of Chest Pain > 30 mh7 y/o. 01:31 The patient or guardian reports chest pain that is located primarily in the anterior mh7 chest wall, left. The pain does not radiate. Associated signs and symptoms: Pertinent positives: shortness of breath, Pertinent negatives: abdominal pain, cough, diaphoresis, dizziness, headache, lower extremity pain, lower extremity swelling, lightheadedness, nausea, near syncope, palpitations, recent travel, syncope, vomiting. The chest pain is described as a pressure. Duration: The patient or guardian reports a single episode, that is still ongoing, and unchanged. Modifying factors: The symptoms are alleviated by nothing. the symptoms are aggravated by nothing. Severity of pain: At its worst the pain was moderate today, 2 hour(s) ago, in the emergency department the pain is unchanged. Historical: - Allergies: 01:21 No Known Allergies; bb - Home Meds: 01:21 None [Active]; bb - PMHx: 01:21 Kidney stones; bb - PSHx: 01:21 None; bb - Immunization history:: Adult Immunizations up to date, Client reports having NOT received the Covid vaccine. - Social history:: Smoking status: Patient reports the use of cigarette tobacco products, smokes one-half pack cigarettes per day, Patient uses street drugs, marijuana, Patient/guardian denies using alcohol. ROS: 01:31 Constitutional: Negative for fever, chills, and weight loss, Eyes: Negative for injury, mh7 pain, redness, and discharge, ENT: Negative for injury, pain, and discharge, Neck: Negative for injury, pain, and swelling, Abdomen/GI: Negative for abdominal pain, nausea, vomiting, diarrhea, and constipation, Back: Negative for injury and pain, : Negative for injury, bleeding, discharge, and swelling, MS/Extremity: Negative for injury and deformity, Skin: Negative for injury, rash, and discoloration, Neuro: Negative for headache, weakness, numbness, tingling, and seizure, Psych: Negative for depression, anxiety, suicide ideation, homicidal ideation, and hallucinations, Allergy/Immunology: Negative for hives, rash, and allergies, Endocrine: Negative for neck swelling, polydipsia, polyuria, polyphagia, and marked weight changes, Hematologic/Lymphatic: Negative for swollen nodes, abnormal bleeding, and unusual bruising. Exam: 01:31 Constitutional: This is a well developed, well nourished patient who is awake, alert, mh7 and in no acute distress. Head/Face: Normocephalic, atraumatic. Eyes: Pupils equal round and reactive to light, extra-ocular motions intact. Lids and lashes normal. Conjunctiva and sclera are non-icteric and not injected. Cornea within normal limits. Periorbital areas with no swelling, redness, or edema. Neck: Trachea midline, no thyromegaly or masses palpated, and no cervical lymphadenopathy. Supple, full range of motion without nuchal rigidity, or vertebral point tenderness. No Meningismus. 01:31 Respiratory: Lungs have equal breath sounds bilaterally, clear to auscultation and percussion. No rales, rhonchi or wheezes noted. No increased work of breathing, no retractions or nasal flaring. Abdomen/GI: Soft, non-tender, with normal bowel sounds. No distension or tympany. No guarding or rebound. No evidence of tenderness throughout. Back: No spinal tenderness. No costovertebral tenderness. Full range of motion. Skin: Warm, dry with normal turgor. Normal color with no rashes, no lesions, and no evidence of cellulitis. MS/ Extremity: Pulses equal, no cyanosis. Neurovascular intact. Full, normal range of motion. Neuro: Awake and alert, GCS 15, oriented to person, place, time, and situation. Cranial nerves II-XII grossly intact. Motor strength 5/5 in all extremities. Sensory grossly intact. Cerebellar exam normal. Normal gait. Psych: Awake, alert, with orientation to person, place and time. Behavior, mood, and affect are within normal limits. 01:31 Chest/axilla: Inspection: normal, Palpation: tenderness, that is moderate, of the anterior aspect of left upper chest, that totally reproduces the patient's complaints, Axilla: are normal, Lymph nodes: lymphadenopathy is not appreciated. 01:31 Cardiovascular: Rate: tachycardic, Rhythm: regular, Pulses: no pulse deficits are appreciated, Heart sounds: normal, normal S1and S2, Edema: is not appreciated, JVD: is not appreciated. Vital Signs: 01:19 BP 144 / 102; Pulse 112; Resp 18 S; Temp 98.3(TE); Pulse Ox 100% on R/A; Weight 90.72 bb kg (R); Height 6 ft. 0 in. (182.88 cm) (R); Pain 8/10; 01:25 BP 144 / 102; Pulse 104; Resp 22; Pulse Ox 100% on R/A; Pain 8/10; tw5 01:59 BP 150 / 113; Pulse 116; Resp 20; Pulse Ox 100% on R/A; df1 02:59 Pain 5/10; tw5 03:00 BP 150 / 115; Pulse 111; Resp 22; Pulse Ox 99% on R/A; Pain 5/10; tw5 03:38 BP 152 / 112; Pulse 101; Resp 18; Pulse Ox 98% on R/A; df1 04:21 BP 153 / 117; Pulse 102; Resp 22; Pulse Ox 97% on R/A; tw5 04:58 Pulse 107; Resp 22; Pulse Ox 99% on R/A; Pain 9/10; tw5 05:34 BP 144 / 102; Pulse 102; Resp 22; Pulse Ox 97% on R/A; tw5 05:34 Pain 2/10; tw5 06:02 BP 144 / 102; Pulse 112; Resp 22; Pulse Ox 96% on R/A; tw5 01:19 Body Mass Index 27.12 (90.72 kg, 182.88 cm) MDM: 05:48 Differential diagnosis: acute myocardial infarction, acute pericarditis, anxiety, mh7 coronary artery disease chest wall pain, costochondritis, gastroesophageal reflux disease (GERD), pericarditis, pleurisy, pneumonia, pneumothorax, pulmonary embolus, Substance abuse. HEART Score: History: Slightly Suspicious (0), ECG: Normal (0), Age: < or = 45 years (0), Risk Factors: 1 or 2 risk factors (1), [Hypertension] Troponin: < or = 1 x Normal Limit (0), Total Score = 1. Data reviewed: vital signs, nurses notes, lab test result(s), cardiac enzymes, CBC, drug level(s), urine drug screen, EKG, radiologic studies, CT scan, plain films. Data interpreted: Pulse oximetry: on room air is 98 %. Interpretation: normal. Counseling: I had a detailed discussion with the patient and/or guardian regarding: the historical points, exam findings, and any diagnostic results supporting the discharge/admit diagnosis, the presence of at least one elevated blood pressure reading (>120/80) during this emergency department visit, lab results, radiology results, to return to the emergency department if symptoms worsen or persist or if there are any questions or concerns that arise at home. Refusal of service: The patient/guardian displays adequate decision making capability and despite a detailed discussion of alternatives, benefits, risks, and consequences refuses: all lab tests, D-dimer. ED course: No acute distress, vital signs stable, no focal neurological findings. Chest pain, shortness of breath, nausea, vomiting, or other complaints. Patient admits to smoking marijuana but does not admit to methamphetamine use. Discussed all test results and findings with the patient. He request to be discharged in the ED at this time and declines any further care.. 05:52 Patient medically screened. [facility] 06/08 01:28 Order name: Basic Metabolic Panel [facility] 06/08 01:28 Order name: CBC with Diff [facility] 06/08 01:28 Order name: LFT's; Complete Time: 02:48 [facility] 06/08 01:28 Order name: Magnesium; Complete Time: 02:48 [facility] 06/08 01:28 Order name: NT PRO-BNP; Complete Time: 02:48 [facility] 06/08 01:28 Order name: PT-INR; Complete Time: 02:48 [facility] 06/08 01:28 Order name: Troponin (emerg Dept Use Only); Complete Time: 02:48 [facility] 06/08 01:28 Order name: UDS; Complete Time: 02:48 [facility] 06/08 01:28 Order name: Basic Metabolic Panel; Complete Time: 02:48 [facility] 06/08 01:28 Order name: CBC with Automated Diff; Complete Time: 02:48 [facility] 06/08 01:30 Order name: TSH [facility] 06/08 02:01 Order name: Lipase; Complete Time: 02:48 [facility] 06/08 01:28 Order name: XRAY Chest (1 view) [facility] 06/08 01:28 Order name: EKG; Complete Time: 01:28 [facility] 06/08 01:28 Order name: Cardiac monitoring; Complete Time: 01:28 [facility] 06/08 01:28 Order name: EKG - Nurse/Tech; Complete Time: 01:28 [facility] 06/08 02:01 Order name: Thyroid Stimulating Hormone; Complete Time: 02:48 [facility] 06/08 02:49 Order name: CPK; Complete Time: 03:24 [facility] 06/08 04:26 Order name: CT Chest For PE Angio [facility] 06/08 04:44 Order name: Troponin (Emerg Dept Use Only); Complete Time: 05:24 [facility] 06/08 01:28 Order name: IV Saline Lock; Complete Time: 01:29 [facility] 06/08 01:28 Order name: Labs collected and sent; Complete Time: 01: [facility] 06/08 01:28 Order name: O2 Per Protocol; Complete Time: 01: [facility] 06/08 01:28 Order name: O2 Sat Monitoring; Complete Time: 01: [facility] Administered Medications: 01:48 Drug: morphine 4 mg Route: IVP; Site: right antecubital; tw5 02:59 Follow up: Pain 5/10 Adult; Response: No adverse reaction; Pain is decreased; RASS: tw5 Alert and Calm (0) 01:48 Drug: Zofran (Ondansetron) 4 mg Route: IVP; Site: right antecubital; tw5 02:59 Follow up: Response: No adverse reaction tw5 02:59 Drug: NS 0.9% 1000 ml Route: IV; Rate: 1000 ml; Site: right antecubital; tw5 03:02 Drug: Ativan (LORazepam) 1 mg Route: IVP; Site: right antecubital; tw5 04:20 Follow up: Response: No adverse reaction; Anxiety decreased tw5 04:20 Drug: Ativan (LORazepam) 1 mg Route: IVP; Site: right antecubital; tw5 04:53 Follow up: Response: No adverse reaction; Anxiety decreased tw5 04:57 Drug: Ketorolac 15 mg Route: IVP; Site: right antecubital; tw5 05:34 Follow up: Pain 2/10 Adult; Response: No adverse reaction; Pain is decreased tw5 Disposition Summary: 06/08/21 05:52 Discharge Ordered Location: Home [facility] Problem: [facility] Symptoms: have improved [facility] Condition: Stable [facility] Diagnosis - Chest pain, unspecified mh7 - Methamphetamine abuse 7 Followup: 7 - With: Private Physician - When: 1 - 2 days - Reason: Worsening of condition, Recheck today's complaints, Continuance of care, Re-evaluation by your physician Followup: 7 - With: Miguel Ángel Gaona MD - When: 1 - 2 days - Reason: Worsening of condition, Recheck today's complaints Discharge Instructions: - Discharge Summary Sheet 7 - Nonspecific Chest Pain, Adult, [id number] 7 - Methamphetamines Use Disorder [facility] Forms: - Medication Reconciliation Form [facility] - Thank You Letter [facility] - Antibiotic Education [facility] - Prescription Opioid Use [facility] Signatures: Dispatcher [employer] EDLela Storm RN RN Roque Alfaro MD MD [facility] Amelia Marroquin tw5 Corrections: (The following items were deleted from the chart) 01:59 01:36 LIPASE+C.LAB.BRZ ordered. EDMS EDMS 02:00 01:31 Thyroid Stimulating Hormone ordered. EDMS EDMS 04:58 04:44 TROPONIN (EMERG DEPT USE ONLY)+C.LAB.BRZ ordered. EDMS EDMS
[2021-06-08 06:17] VITALS: TEMP 98.3
[2021-06-08 06:29] VITALS: BP 144/102
[2021-06-08 06:31] VITALS: O2SAT 96
--- NOTE | 2021-06-08 11:03 | RAD REPORT ---
EXAM DESCRIPTION: RAD - Chest Single View - 06/08/2021 1:56 am CLINICAL HISTORY: CHEST PAIN Chest pain. COMPARISON: Chest For Pe Angio dated 06/08/2021 FINDINGS: Portable technique limits examination quality. The lungs are grossly clear. The heart is normal in size. No displaced fractures. IMPRESSION: No acute intrathoracic process suspected.
--- NOTE | 2021-06-09 14:22 | RAD REPORT ---
EXAM DESCRIPTION: CT Angiography Chest With Intravenous Contrast CLINICAL HISTORY: The patient is 35 years old and is Male; CHEST PAIN TECHNIQUE: Axial computed tomographic angiography images of the chest with intravenous contrast. S agittal and coronal reformatted images were created and reviewed. This CT exam was performed using one or more of the following dose reduction techniques: automated exposure control, adjustment of t he mA and/or kV according to patient size, and/or use of iterative reconstruction technique. MIP re constructed images were created and reviewed. COMPARISON: No relevant prior studies available. FINDINGS: Pulmonary arteries: Evaluation for pulmonary thromboembolism is limited due to lack of a dequate IV contrast density in the pulmonary arteries. HU= 160 in the main pulmonary outflow tract. N o definite PE visualized. Aorta: No acute findings. No thoracic aortic aneurysm. Lungs: No pulmonary consolidation or groundglass opacities suggest pneumonia. Pleural space: No pleural effusion or pneumothorax. Heart: Unremarkable. No cardiomegaly. No significant pericardial effusion. No evidence of R V dysfunction. Bones/joints: Old T11 focal compression fracture/Schmorl's node. No acute fracture visualized. No dislocation. Soft tissues: Unremarkable. Lymph nodes: Unremarkable. No enlarged lymph nodes. IMPRESSION: Evaluation for pulmonary thromboembolism is limited due to lack of adequate IV contrast density in the pulmonary arteries. HU= 160 in the main pulmonary outflow tract. No definite PE visual ized. Electronically signed by: Hortensia Mendieta MD 06/08/2021 5:24 AM AMUSEMENT RIDE INSPECTOR Due to temporary technical issues with the PACS/Fluency reporting system, reports are being signed by the in house radiologists without review as a courtesy to insure prompt reporting. The interpreting radiologist is fully responsible for the content of the report.
--- NOTE | 2021-06-12 08:17 | EKG ---
Test Date: 2021-06-08 Test Time: 01:17:42 Fountain Helper: GLENNY MEASUREMENT RESULTS: Intervals: Rate: 106 WV: 134 QRSD: 96 QT: 338 QTc: 448 Frederick: P: 68 WV: 134 QRS: 67 T: 66 INTERPRETIVE STATEMENTS: Sinus tachycardia Otherwise normal ECG No previous ECG available for comparison Electronically Signed On 06-12-21 08:04:53 TERRITORY SALES CONSULTANT by Miguel Ángel Gaona
== END 2021-06-08 06:03 | disposition home or self-care (01) ==
LOC: ER 01:07
DX: R07.9 Chest pain, unspecified (principal); F15.10 Other stimulant abuse, uncomplicated; F17.210 Nicotine dependence, cigarettes, uncomplicated
CPT/HCPCS: 93005; 85025; 80048; 36415; 83735; 82550; 85610; 80076; 84443; 84484 ×2; 83690; 83880; 80307; 71275; 71045; 96375; 96374; 99285; Q9967; J7030; J2405

== ENCOUNTER 2021-08-19 13:52 | Emergency (ER) | payer OTHER ==
--- OUTSIDE RECORDS SUMMARY | 2021-08-19 13:56 | XMS REPORT | Continuity of Care Document ---
:1985 Author Organization [facility] t Address [address] [place] [address] Care Team Providers Name Role Phone Lashay Attending Clinician Unavailable Gaby Attending Clinician Unavailable Elda Dinh Admitting Clinician Unavailable Gaby Admitting Clinician Unavailable Payers Payer Name Policy Type Policy Number Effective Date Expiration Date S ource Problems This patient has no known problems. Allergies, Adverse Reactions, Alerts Allergy Allergy Status Severity Reaction(s) Onset Inactive Treating Comm ents Source Name Type Date Date Clinician No Known DA Active U 2020-07 [facility] Allergie 09-10 [facility] 00:00: d 00 [facility] Medications This patient has no known medications. Procedures This patient has no known procedures. Encounters Start End Encounter Admission Attending Care Care Encounter Source Date/Time Date/Time Type Type Clinicians Facility Department ID 2021-07-10 2021-07-10 Emergency EM Lashay, BAKARI AMERICO [id number] [facility] 08:25:00 09:40:00 Safi [id number] [facility] 2021-07-10 2021-07-10 [id number] [facility] 08:25:00 09:40:00 Safi 83 [facility] 2019-11-08 2019-11-08 Outpatient Gaby MMG MMG [id number] [place] 04:07:00 04:07:00 [facility] Results This patient has no known results.
--- NOTE | 2021-08-19 15:55 | ER ---
Nurse's Notes [facility] Name: Delio Diaz Age: 36 yrs Sex: Male : 1985 Arrival Date: 08/19/2021 Time: 13:54 Bed Waiting Private MD: Diagnosis: Presentation: 08/19 14:01 Chief complaint: Patient states: Body aches that started this am with GRADY and low grade jh6 fever . Coronavirus screen: Client denies travel out of the [place] in the last 14 days. Ebola Screen: Patient denies travel to an Ebola-affected area in the 21 days before illness onset. Initial Sepsis Screen: Does the patient meet any 2 criteria? No. Patient's initial sepsis screen is negative. Does the patient have a suspected source of infection? No. Patient's initial sepsis screen is negative. Risk Assessment: Do you want to hurt yourself or someone else? Patient reports no desire to harm self or others. 14:01 Method Of Arrival: Ambulatory [facility] 14:01 Acuity: TUNG 4 [facility] Triage Assessment: 14:15 General: Appears in no apparent distress. comfortable, Behavior is calm, appropriate [facility] for age. Pain: Pain currently is 3 out of 10 on a pain scale. Quality of pain is described as aching. EENT: Reports pain when swallowing. Historical: - Allergies: 14:15 No Known Allergies; 6 - PMHx: 14:15 Kidney stones; [facility] - Immunization history:: Client reports having NOT received the Covid vaccine. - Social history:: Smoking status: Patient reports the use of cigarette tobacco products. Vital Signs: 14:01 BP 113 / 64; Pulse 86; Resp 17; Temp 98.7(O); Pulse Ox 99% ; Weight 83.91 kg; Height 5 [facility] ft. 10 in. (177.80 cm); Pain 3/10; 14:01 Body Mass Index 26.54 (83.91 kg, 177.80 cm) [facility] ED Course: 13:54 Patient arrived in ED. as 14:04 [facility]C [facility] kb 14:04 Hank Iglesias MD is Attending Physician. kb 14:[address] [facility] 14:45 COVID-19/FLU A+B (Document "Date of Onset" if Symptomatic) Sent. ld1 14:45 Strep Sent. ld1 Administered Medications: No medications were administered Outcome: 15:54 Patient left the ED. Signatures: Eneida Silva, DONNA CARPENTER-Dede Portillo Shelby RN RN Gemini Diallo RN RN ld1 Nuha Gracia RN RN jh6
[2021-08-19 16:11] VITALS: BP 113/64; TEMP 98.7; O2SAT 99
[2021-08-19 16:16] LABS: SARS-COV-2 RT PCR NEGATIVE (NEGATIVE)
== END 2021-08-19 15:54 | disposition left against medical advice (07) ==
LOC: ER 13:52
DX: U07.1 COVID-19 (principal); F17.210 Nicotine dependence, cigarettes, uncomplicated
CPT/HCPCS: 87070; 87081; 0240U; 99282

== ENCOUNTER 2024-12-03 00:50 | Emergency (ER) | payer OTHER ==
[2024-12-03] MEDS ORDERED: IBUPROFEN 200 MG TAB PO ONE (02:05)
[2024-12-03] MEDS ORDERED: IBUPROFEN 400 MG TAB ONE (02:05)
[2024-12-03 02:28] LABS: SARS-CoV-2 Antigen Rapid Res Negative (Negative)
--- NOTE | 2024-12-03 02:52 | ER ---
Nurse's Notes [facility] Name: Delio Diaz Age: 39 yrs Sex: Male : 1985 Arrival Date: 12/03/2024 Time: 00:50 Bed IW1 Private MD: Diagnosis: Myalgia;Essential (primary) hypertension Presentation: 12/03 01:55 Chief complaint: Patient states: body aches, headache, shivers, dark urine, and nausea al5 since 1999 last night. Coronavirus screen: At this time, the client does not indicate any symptoms associated with coronavirus-19. Ebola Screen: No symptoms or risks identified at this time. Initial Sepsis Screen: Does the patient meet any 2 criteria? HR > 90 bpm. No. Patient's initial sepsis screen is negative. Does the patient have a suspected source of infection? No. Patient's initial sepsis screen is negative. Risk Assessment: Do you want to hurt yourself or someone else? Patient reports no desire to harm self or others. Onset of symptoms was December 02, 2024. 01:55 Method Of Arrival: Ambulatory al5 01:55 Acuity: TUNG 4 al5 Triage Assessment: 01:57 General: Appears in no apparent distress. uncomfortable, Behavior is calm, cooperative. al5 Pain: Complains of pain in back. EENT: No signs and/or symptoms were reported regarding the EENT system. Neuro: Level of Consciousness is awake, alert, obeys commands, Oriented to person, place, time, situation, Reports headache. Cardiovascular: Capillary refill < 3 seconds Patient's skin is warm and dry. Respiratory: Airway is patent Respiratory effort is even, unlabored, Respiratory pattern is regular, symmetrical. GI: Reports nausea. : Reports initially dark urine that has returned to normal. Derm: Skin is intact, is healthy with good turgor, Skin is pink, warm \T\ dry. normal. Musculoskeletal: Reports body aches. Historical: - Allergies: :57 No Known Allergies; al5 - PMHx: :57 Hypertensive disorder; Kidney stones; Bipolar disorder; Schizophrenia; PTSD; manic al5 depression; - PSHx: :57 None; al5 - Immunization history:: Adult Immunizations up to date. - Infectious Disease History:: Denies. - Social history:: Smoking status: Patient reports the use of cigarette tobacco products, smokes 0.33 packs per day. Screenin:59 [facility] ED Fall Risk Assessment (Adult) History of falling in the last 3 months, al5 including since admission No falls in past 3 months (0 pts) Confusion or Disorientation No (0 pts) Intoxicated or Sedated No (0 pts) Impaired Gait No (0 pts) Mobility Assist Device Used No (0 pt) Altered Elimination No (0 pt) Score/Fall Risk Level 0 - 2 = Low Risk Oriented to surroundings, Maintained a safe environment, Hourly rounding (assess needs \T\ fall precautionary measures) done. Abuse screen: Denies threats or abuse. Denies injuries from another. Nutritional screening: No deficits noted. Tuberculosis screening: No symptoms or risk factors identified. Assessment: :59 Reassessment: see triage assessment. al5 Vital Signs: 01:55 BP 185 / 119; Pulse 98; Resp 18; Temp 98.9; Pulse Ox 100% on R/A; Weight 86.18 kg; al5 Height 6 ft. 0 in. ; 01:55 Body Mass Index 25.77 (86.18 kg, 182.88 cm) al5 ED Course: 00:54 Patient arrived in ED. gm2 01:09 Nabeel Beal DO is Attending Physician. ms3 01:57 Triage completed. al5 01:57 Arm band placed on right wrist. Patient placed in the treatment room, in view of staff al5 members, Patient notified of wait time. 01:59 Patient has correct armband on for positive identification. Provided Education on: plan al5 of care. :59 No provider procedures requiring assistance completed. al5 02:51 Koko Klein DO is Referral Physician. ms3 03:01 Patient did not have IV access during this emergency room visit. br2 Administered Medications: 02:04 Drug: Ibuprofen PO 600 mg PO once Route: PO; al5 03:01 Follow up: Response: No adverse reaction br2 Medication: 01:59 VIS not applicable for this client. al5 Outcome: 02:52 Discharge ordered by . ms3 03:00 Discharged to home ambulatory, br2 03:00 Condition: stable 03:00 Discharge instructions given to patient, Instructed on discharge instructions, follow up and referral plans. Demonstrated understanding of instructions, follow-up care, 03:02 Patient left the ED. br2 Signatures: Nabeel Beal, DO DOMINGUEZ ms3 Enma Edouard gm2 Nusrat Brar, RN RN al5 Yvonne Cortez RN RN br2
--- NOTE | 2024-12-03 02:52 | EDPHYS ---
Physician Documentation [facility] Name: Delio Diaz Age: 39 yrs Sex: Male : 1985 Arrival Date: 12/03/2024 Time: 00:50 Bed IW1 Private MD: ED Physician Nabeel Beal HPI: 12/03 02:56 This 39 yrs old Male presents to ER via Ambulatory with complaints of Flu Symptoms. ms3 02:56 39-year-old male with past medical history of hypertension, kidney stones, bipolar ms3 disorder, schizophrenia, PTSD, manic depression presents to the emergency department for fevers, chills. Patient denies cough, nausea, vomiting, diarrhea. Patient states he has not taken medications for his symptoms. Patient states he is having 9/10 body aches.. Historical: - Allergies: :57 No Known Allergies; al5 - PMHx: 01:57 Hypertensive disorder; Kidney stones; Bipolar disorder; Schizophrenia; PTSD; manic al5 depression; - PSHx: :57 None; al5 - Immunization history:: Adult Immunizations up to date. - Infectious Disease History:: Denies. - Social history:: Smoking status: Patient reports the use of cigarette tobacco products, smokes 0.33 packs per day. ROS: 02:56 Cardiovascular: Negative for chest pain, and palpitations. Respiratory: Negative for ms3 shortness of breath, cough, wheezing, and pleuritic chest pain, Abdomen/GI: Negative for abdominal pain, nausea, vomiting, diarrhea, and constipation, MS/Extremity: Negative for injury and deformity, Skin: Negative for injury, rash, and discoloration, 02:56 Constitutional: Positive for body aches, chills, fever, 02:56 Neuro: Positive for headache, Exam: 02:56 Constitutional: This is a well developed, well nourished patient who is awake, alert, ms3 and in no acute distress. Cardiovascular: Regular rate and rhythm with a normal S1 and S2. No gallops, murmurs, or rubs. Normal PMI, no JVD. No pulse deficits. Respiratory: Lungs have equal breath sounds bilaterally, clear to auscultation and percussion. No rales, rhonchi or wheezes noted. No increased work of breathing, no retractions or nasal flaring. Abdomen/GI: Soft, non-tender, with normal bowel sounds. No distension or tympany. No guarding or rebound. No evidence of tenderness throughout. Skin: Warm, dry with normal turgor. Normal color with no rashes, no lesions, and no evidence of cellulitis. MS/ Extremity: Pulses equal, no cyanosis. Neurovascular intact. Full, normal range of motion. Vital Signs: 01:55 BP 185 / 119; Pulse 98; Resp 18; Temp 98.9; Pulse Ox 100% on R/A; Weight 86.18 kg; al5 Height 6 ft. 0 in. ; 01:55 Body Mass Index 25.77 (86.18 kg, 182.88 cm) al5 MDM: 01:42 Medical Screening Exam initiated ms3 02:56 Differential Diagnosis: Upper Respiratory Infection Viral Syndrome Other Covid. Data ms3 reviewed: vital signs, nurses notes, lab test result(s), and as a result, I will discharge patient. I considered the following discharge prescriptions or medication management in the emergency department Medications were administered in the Emergency Department. See MAR. Care significantly affected by the following chronic conditions: Hypertension. Counseling: I had a detailed discussion with the patient and/or guardian regarding the historical points, exam findings, and any diagnostic results supporting the discharge/admit diagnosis, lab results, the need for outpatient follow up, to return to the emergency department if symptoms worsen or persist or if there are any questions or concerns that arise at home. Special discussion: I discussed with the patient/guardian in detail that at this point there is no indication for admission to the hospital. It is understood, however, that if the symptoms persist or worsen the patient needs to return immediately for re-evaluation. ED course: Discussed negative COVID results with patient. Patient to follow-up with primary care physician 2 to 3 days. Patient understands and agrees with plan. All questions were answered. Return precautions discussed include worsening symptoms, or any other concerns. 12/03 01:09 Order name: SARS-COV-2 Antigen Rapid; Complete Time: 02:45 ms3 Administered Medications: 02:04 Drug: Ibuprofen PO 600 mg PO once Route: PO; al5 03:01 Follow up: Response: No adverse reaction br2 Disposition Summary: 12/03/24 02:52 Discharge Ordered Notes: Location: Home ms3 Condition: Stable ms3 Diagnosis - Myalgia ms3 - Essential (primary) hypertension ms3 Followup: ms3 - With: Koko Klein DO - When: 2 - 3 days - Reason: Recheck today's complaints Discharge Instructions: - Discharge Summary Sheet ms3 - Hypertension, Adult ms3 - Viral Illness, Adult ms3 Forms: - Medication Reconciliation Form ms3 - Antibiotic Education ms3 - Prescription Opioid Use ms3 - Patient Portal Instructions ms3 - Leadership Thank You Letter ms3 Signatures: Dispatcher [employer] EDNabeel Beckman DO DO ms3 Nusrat Brar, RN RN al5 Yvonne Cortez RN br2
[2024-12-03 03:06] VITALS: BP 185/119; TEMP 98.9; O2SAT 100
== END 2024-12-03 03:02 | disposition home or self-care (01) ==
LOC: ER 00:50
DX: M79.10 Myalgia, unspecified site (principal); I10 Essential (primary) hypertension; F17.210 Nicotine dependence, cigarettes, uncomplicated; F20.9 Schizophrenia, unspecified; Z11.52 Encounter for screening for COVID-19
CPT/HCPCS: 36415; 87426; 99283